=== PATIENT | male | born 1950 | race Caucasian/White ===

== ENCOUNTER 2016-02-25 06:59 | Inpatient (IN) ==
[2016-02-18 15:46] LABS: Appearance,Urine HAZY; Bilirubin,Urine NEG (NEG); Color,Urine YELLOW; Glucose,Urine (UA) NEGATIVE (NEG); Leukocyte Esterase,Urine NEG /uL (NEG); Nitrate,Urine NEG (NEG); Protein,Urine NEG (NEG); Specific Gravity,Urine 1.008 (1.000-1.035); Urine Blood NEG mg/dL (<0.03); Urobilinogen,Urine NEG (NEG)
[2016-02-18 17:34] LABS: Basophils # (Auto) 0 K/mcL (0.0-0.3); Basophils % (Auto) 0.5 % (0.0-2.0); Eosinophils # (Auto) 0.4 K/mcL (0.0-0.7); Eosinophils % (Auto) 5.9 % (0.0-7.0); Granulocytes % (Auto) 60.2 % (38.0-78.0); Lymphocytes # (Auto) 1.6 K/mcL (1.5-4.8); Lymphocytes % (Auto) 24.7 % (15.5-49.0); Mean Cell Volume 91.1 fL (80.0-100.0); Mean Corpuscular HGB Conc 32.3 g/dL (31.0-36.0); Mean Corpuscular Hemoglobin 29.4 pg (26.0-34.0); Monocytes # (Auto) 0.6 K/mcL (0.1-0.9); Monocytes % (Auto) 8.7 % (1.0-9.0); Platelet Count 256 K/mcL (140-440); RBC 5.38 M/mcL (4.50-5.90); Red Cell Distribution Width 14.1 % (11.5-14.5)
[2016-02-18 17:41] LABS: Blood Urea Nitrogen 13 mg/dl (8-23)
[~2016-02-25 06:59] MED LIST: CELECOXIB 200 MG CAPSULE PO SCH; PREGABALIN 150 MG CAPSULE PO SCH; ceFAZolin 1 GM VIAL IV SCH; oxyCODONE 10 MG TAB.ER.12H PO SCH
[2016-02-25] MEDS: ceFAZolin 1 GM VIAL ONE ×2 (09:32→10:36)
[2016-02-25] MEDS ORDERED: PHENYLEPHRINE 10 MG/ML VIAL IV ONE (09:40)
[2016-02-25] MEDS ORDERED: MIDAZOLAM 5 MG/5 ML VIAL IV ONE (09:40)
[2016-02-25] MEDS ORDERED: PROPOFOL 200 MG/20 ML VIAL IV ONE (09:40)
[2016-02-25] MEDS ORDERED: ONDANSETRON 4 MG/2 ML VIAL IV ONE (09:40)
[2016-02-25] MEDS ORDERED: TRANEXAMIC ACID 1,000 MG/10 ML VIAL IV ONE ×2 (09:40→11:10)
[2016-02-25] MEDS ORDERED: KETAMINE 100 MG/ML ML IV ONE (09:40)
[2016-02-25] MEDS ORDERED: FAMOTIDINE/PF 20 MG/2 ML VIAL IV ONE (09:40)
[2016-02-25] MEDS ORDERED: METOCLOPRAMIDE 10 MG/2 ML VIAL IV ONE (09:40)
[2016-02-25] MEDS ORDERED: GLYCOPYRROLATE 0.2 MG/ML VIAL IV ONE (09:40)
[2016-02-25] MEDS ORDERED: LIDOCAINE HCL/PF 100 MG/5 ML SYRINGE IV ONE (09:40)
[2016-02-25] MEDS ORDERED: GENTAMICIN SULFATE 800 MG/20 ML VIAL IR ONE (10:02)
[2016-02-25] MEDS ORDERED: BENZOCAINE/MENTHOL 1 LOZENGE PO PRN ×2 (10:40→11:10)
[2016-02-25] MEDS ORDERED: fentaNYL 100 MCG/2 ML VIAL IV PRN (10:40)
[2016-02-25] MEDS ORDERED: ePHEDrine 50 MG/ML AMPUL IV PRN (10:40)
[2016-02-25] MEDS ORDERED: METHOCARBAMOL 1,000 MG/10 ML VIAL IV PRN (10:40)
[2016-02-25] MEDS ORDERED: IPRATROPIUM/ALBUTEROL 3 ML AMPUL.NEB NEB PRN (10:40)
[2016-02-25] MEDS ORDERED: PROMETHAZINE 25 MG/ML VIAL IV PRN (10:40)
[2016-02-25] MEDS ORDERED: METOCLOPRAMIDE 10 MG/2 ML VIAL IV PRN (10:40)
[2016-02-25] MEDS ORDERED: MEPERIDINE 25 MG/ML SYRINGE IV PRN (10:40)
[2016-02-25] MEDS ORDERED: LACTATED RINGERS 1,000 ML IV SCH (10:45)
[2016-02-25] MEDS ORDERED: MAGNESIUM HYDROXIDE 30 ML ORAL.SUSP PO PRN (11:10)
[2016-02-25] MEDS ORDERED: BISACODYL 10 MG SUPP.RECT PR PRN (11:10)
[2016-02-25] MEDS ORDERED: FLEETS ADULT ENEMA PR PRN (11:10)
[2016-02-25] MEDS ORDERED: ONDANSETRON 4 MG/2 ML VIAL IV PRN (11:10)
[2016-02-25] MEDS ORDERED: PSYLLIUM HUSK 6 GM PACKET PO PRN (11:10)
[2016-02-25] MEDS ORDERED: POLYETHYLENE GLYCOL 3350 17 GM PACKET PO PRN (11:10)
--- NOTE | 2016-02-25 11:10 | Brief Operative Note ---
Date of procedure: 02/25/16 Pre-op diagnosis: left hip oa Post-op diagnosis: same Procedure: left total hip arthroplasty Grafts/Implants: Yes Anesthesia: spinal Complications: none Surgeon: Reyes Smith Special Ed Assistant: Rajat Lopez Estimated blood loss (cc): 100 Specimens Removed/Pathology: none sent Condition: stable Disposition: PACU
--- NOTE | 2016-02-25 11:58 | Operative Note ---
DATE OF OPERATION: 02/25/2016 PREOPERATIVE DIAGNOSIS: Degenerative joint disease, left hip. POSTOPERATIVE DIGNOSIS: Degenerative joint disease, left hip. PROCEDURE: Left total hip arthroplasty. SURGEON: Apolinar Smith M.D. EMERGENCY ROOM TECHNICIAN SURGEON: Rajat Lopez PA-C ANESTHESIA: Spinal with LMA assist. ESTIMATED BLOOD LOSS: 100 mL COMPLICATIONS: None noted. SPECIMENS REMOVED: None. DRAINS: None. IMPLANTS: Depuy [place] Gription acetabular shell 54 mm, Depuy [place] hole eliminator, Depuy [place] Altrex polyethylene acetabular liner lipped, 32 x 54, Depuy Articul/Kris femoral head 32 + 13, Depuy Tri-Lock BPS femoral stem with Gription size 6 standard. INDICATIONS: The patient has had a longstanding history of worsening pain in the hip that has failed conservative treatment. Radiographs have confirmed advanced degenerative joint disease. After a long discussion about treatment options, the patient elected to proceed with a hip arthroplasty. The risks and benefits were discussed with the patient in detail including, but not limited to, the risks of anesthesia, problems with the heart or lungs related to anesthesia, infection, compromise or injury to the nerves and blood vessels, deep venous thrombosis, pulmonary embolism, pneumonia, continued pain after surgery, worsening pain or symptoms after surgery, swelling, loss of motion, instability, leg length discrepancy, and need for repeat surgery. DESCRIPTION OF PROCEDURE: The patient was seen in pre-anesthesia waiting room where all questions were answered and the correct side and site were identified and marked. The patient was then brought to the operating room and administered the anesthetic and given pre-operative antibiotics. A time-out was then called. The patient was placed in the lateral decubitus position with all prominences well padded using the Fabiano frame and the extremity was prepped and draped in the usual sterile fashion. Anesthesia gave the patient 1 gm of tranexamic acid via an intravenous route. A standard posterior approach was made. We dissected through the skin and subcutaneous tissue to the deep fascia. The deep fascia was split in line with the incision and a Charnley retractor was placed. We exposed, tagged, and incised the short external rotators and piriformis tendon and retracted them posteriorly to help protect the sciatic nerve which was palpated throughout the case. We then performed a T-capsulotomy and tagged the capsule edges. Prior to dislocating the hip, we set a length and offset gauge from a Steinmann pin in the iliac wing to a jorge on the greater trochanter. The hip was then dislocated and a femoral neck osteotomy was performed to the pre-surgical templated level off the lesser trochanter. The head was removed and sized. We next turned our attention to the acetabulum. Retractors were placed for optimal visualization. A complete labral excision was performed. The capsule was preserved for later closure. We began reaming using anatomic landmarks with the DePuy [place] acetabular system. We medialized the cup and reamed up to provide good fill and coverage of the trial. When the trial was stable and appropriately positioned with approximately 20 degrees of anteversion and 45 degrees of abduction, we impacted the DePuy [place] cup and placed a cancellous screw in the posterior-superior quadrant. Osteophytes were removed from around the shell. We placed the trial liner and turned our attention to the femur. We placed retractors for visualization, internally rotated the femur, and established intramedullary access. We broached using the DePuy Tri-Lock stem to a stable platform medial, lateral, and rotationally with the appropriate version. We then performed a calcar reaming off the broach. Trials were then placed and optimized for leg length and stability. We used the leg length and offset guide to confirm our trials. Best stability, length, and offset characteristics were obtained with these sizes. We removed all trials and impacted the polyethylene acetabular liner in a standard fashion after a thorough irrigation. We then impacted the femoral stem to its broached location and placed the head. Final reduction was performed. Again, good stability, leg length, and offset characteristics were noted. We irrigated with three liters of antibiotic saline. We closed the capsule with #2 FiberWire. We placed a deep drain and closed the fascia with a combination of looped #0 Maxon and #0 Vicryl. We closed the subcutaneous tissue and skin in layers out to gina in the skin. A sterile pressure dressing and abduction wedge was applied. All needle and sponge counts were correct. The patient was transferred to the recovery room in stable condition. ALICIA:[email or web address] Job ID: [id number] Doc ID: [id number] Apolinar Smith MD
--- NOTE | 2016-02-25 12:37 | XRay Report ---
CLINICAL INFORMATION: Postop total hip prostheses COMPARISON: None. FINDINGS: Left total hip prostheses is anatomically aligned. Both SI and right hip are minimally degenerated. Soft tissue swelling seen over the surgical site as expected IMPRESSION: Negative Interpreted and Authenticated by: Reyes Serrato 02/25/16
[2016-02-25] MEDS: FERROUS SULFATE 325 MG TABLET PO SCH ×2 (13:33→18:12)
[2016-02-25] MEDS: LACTATED RINGERS 1,000 ML IV SCH ×2 (14:16→19:34)
[2016-02-25] MEDS: 0.9 % SODIUM CHLORIDE 10 ML SYRINGE IV SCH ×2 (14:17→23:07)
[2016-02-25] MEDS: HYDROcodone/APAP 10/325MG TABLET PO PRN ×2 (15:33→19:34)
[2016-02-25] MEDS: KETOROLAC 15 MG/ML VIAL IV PRN (15:33)
[2016-02-25] MEDS: ceFAZolin 1 GM VIAL IV SCH (18:12)
[2016-02-25] MEDS: SENNOSIDES 1 TABLET PO SCH (20:44)
[2016-02-25] MEDS: DOCUSATE SODIUM 100 MG CAPSULE PO SCH (20:45)
[2016-02-25] MEDS: ASPIRIN 325 MG ENTERIC COATED TABLET PO SCH (20:45)
[2016-02-25] MEDS: METHOCARBAMOL 750 MG TABLET PO PRN (20:51)
[2016-02-26] MEDS: HYDROmorphone 2 MG/ML SYRINGE IV PRN ×2 (00:22→02:15)
[2016-02-26] MEDS: HYDROcodone/APAP 10/325MG TABLET PO PRN ×6 (00:22→17:45)
[2016-02-26] MEDS: ceFAZolin 1 GM VIAL IV SCH (01:40)
[2016-02-26] MEDS: 0.9 % SODIUM CHLORIDE 10 ML SYRINGE IV SCH ×4 (04:41→21:08)
[2016-02-26] MEDS: LACTATED RINGERS 1,000 ML IV SCH ×3 (04:41→21:08)
[2016-02-26] MEDS: METHOCARBAMOL 750 MG TABLET PO PRN ×2 (04:59→11:38)
[2016-02-26] MEDS: KETOROLAC 15 MG/ML VIAL IV PRN ×3 (04:59→17:38)
[2016-02-26] MEDS ORDERED: PANTOPRAZOLE 40 MG TABLET PO SCH (07:30)
[2016-02-26] MEDS: FERROUS SULFATE 325 MG TABLET PO SCH ×4 (07:31→17:41)
--- NOTE | 2016-02-26 07:51 | Discharge Summary ---
Providers - Providers Patient information: Note initiated : 02/26/16 at 7:49 am Service Date, if different from initiated Date: [] Patient: Juan Jose Monique 65 y/o M admitted on 02/25/16 for Left Total Hip Arthroplasty *!section chief!*. Chief Complaint: [] Date of admission: 02/25/16 Discharge date: 02/26/16 Attending physician: Reyes Smith Hospitalization Hospital course: Patient underwent left total hip arthroplasty. Tolerated procedure well. Mild pain PO day 1 but was ambulating well and was ready to discharge home. Pain currently controlled. He is urinating. Denies calf pain, chest pain, SOB. Discharge diagnosis: left total hip arthroplasty Reason for admission: left degenerative joint disease Procedures: left total hip arthroplasty Exam - Exam Incision healing: Yes Incision draining: No Incision red: No Incision swollen: No Incision inflamed: No Clean and dry: Yes Weight bearing status: as tolerated Ortho Discharge - [facility] - Patient Instructions Diet: Regular Diet Activity: ambulate with assistive device, weight bearing as tolerated Total Hip Protocol: Follow activity instructions as provided by Physical Therapy. Dressing Care: May shower in 2 days Additional Dressing Instructions: Leave dermabond mesh intact! - Follow Up Plan Disposition: Home, Self-Care Prognosis: Good Rehab Potential: Good I certify that the patient requires SNF services: No Overall status at discharge: patient is progressing back to baseline - Orders For Discharge Prescriptions: Aspirin [Ecotrin] 325 mg PO BID #60 tab.ec Docusate Sodium [Colace] 100 mg PO BID #30 capsule HYDROcodone/APAP 10/325MG [[place] 10/325Mg] 1 - 2 tab PO Q4HP PRN #60 tablet PRN Reason: Pain Methocarbamol [Robaxin] 750 mg PO Q6HP PRN #30 tablet PRN Reason: Muscle Spasm Pending Studies Resuscitation Status Full Code Diet Regular Diet Start WedFeb 24 Dinner Diet Regular Diet Start WedFeb 25 Lunch Acetaminophen/Hydrocodone Bitart ([place] 10/325mg) 0 tab PO Q4HP PRN PRN Reason: Pain Last Admin: 02/26/16 06:01 Dose: 2 tab Admin: 02/26/16 02:14 Dose: 1 tab Admin: 02/26/16 00:22 Dose: 1 tab Admin: 02/25/16 19:34 Dose: 2 tab Admin: 02/25/16 15:33 Dose: 2 tab Aspirin (Ecotrin) 325 mg PO BID [facility] Last Admin: 02/25/16 20:45 Dose: 325 mg Docusate Sodium (Colace) 100 mg PO BID [facility] Last Admin: 02/25/16 20:45 Dose: 100 mg Ferrous Sulfate (Ferrous Sulfate) 325 mg PO TIDCC [facility] Last Admin: 02/26/16 07:31 Dose: 325 mg Admin: 02/25/16 18:12 Dose: 325 mg Admin: 02/25/16 13:33 Dose: 325 mg Hydromorphone HCl (Dilaudid) 0 mg IV Q2HP PRN PRN Reason: Pain Last Admin: 02/26/16 02:15 Dose: 1 mg Admin: 02/26/16 00:22 Dose: 0.5 mg Lactated Ringer's (Lactated Ringers) 1,000 mls @ 125 mls/hr IV .Q8H [facility] Last Infusion: 02/26/16 07:31 Dose: 0 mls/hr Admin: 02/26/16 04:41 Dose: Not Given Admin: 02/25/16 19:34 Dose: Not Given Admin: 02/25/16 14:16 Dose: 125 mls/hr Ketorolac Tromethamine (Toradol) 15 mg IV Q6HP PRN PRN Reason: Pain Stop: 02/27/16 11:12 Last Admin: 02/26/16 04:59 Dose: 15 mg Admin: 02/25/16 15:33 Dose: 15 mg Methocarbamol (Robaxin) 750 mg PO Q6HP PRN PRN Reason: Muscle Spasm Last Admin: 02/26/16 04:59 Dose: 750 mg Admin: 02/25/16 20:51 Dose: 750 mg Pantoprazole Sodium (Protonix) 40 mg PO Q48@0730 [facility] Last Admin: 02/26/16 07:29 Dose: 40 mg Senna (Senokot) 2 tab PO HS [facility] Last Admin: 02/25/16 20:44 Dose: 2 tab Sodium Chloride (Saline Flush) 10 ml IV Q8 [facility] Last Admin: 02/26/16 07:32 Dose: 10 ml Admin: 02/26/16 04:41 Dose: Not Given Admin: 02/25/16 23:07 Dose: Not Given Admin: 01/17/17 14:17 Dose: 10 ml Shift Summary 02/26/16 02:26 Shift Summary by Arpit Pérez Pt alert and oriented x4, VSS SaO2 >90% RA. Pt up SBA using FWW to bathroom. Makes needs known. Pain has been an issue tonight and has received [place] 2 tabs Q4 Robaxin x1 and 1.5mg Dilaudid. Pt unable to get much sleep. Dressing to left hip CDI. IV in left arm running MIV. No c/o N/V. Needs reminder on hip precautions. Urinating adequately. CMS intact. Will update further at bedside. Initialized on 02/26/16 02:26 - END OF NOTE
[2016-02-26] MEDS: ASPIRIN 325 MG ENTERIC COATED TABLET PO SCH ×2 (08:17→20:51)
[2016-02-26] MEDS: DOCUSATE SODIUM 100 MG CAPSULE PO SCH ×2 (08:17→20:52)
[2016-02-26] MEDS: SENNOSIDES 1 TABLET PO SCH (20:51)
[2016-02-27] MEDS: HYDROcodone/APAP 10/325MG TABLET PO PRN ×3 (02:13→10:32)
[2016-02-27] MEDS: LACTATED RINGERS 1,000 ML IV SCH (03:15)
[2016-02-27] MEDS: 0.9 % SODIUM CHLORIDE 10 ML SYRINGE IV SCH (05:43)
--- NOTE | 2016-02-27 06:21 | Orthopedic Progress Note ---
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 Chief Complaint: [] Interval history: doing well. pain under control Objective Vital signs: Vital Signs Temp Pulse Resp BP Pulse Ox 02/27/16 03:47 99.7 F H 87 12 115/71 94 02/26/16 23:30 99.5 F 79 12 103/67 95 02/26/16 20:00 97.9 F 88 12 102/65 92 02/26/16 16:00 99.5 F 87 18 113/73 93 02/26/16 12:00 98.6 F 80 16 122/59 95 02/26/16 07:53 95 02/26/16 07:38 98.8 F 86 16 136/70 93 Intake and Output 02/26/16 02/27/16 02/27/16 21:59 05:59 13:59 Intake Total 840 / 840 100 / 100 Balance 840 / 840 100 / 100 Intake: Oral 840 / 840 100 / 100 Other: Meal Dinner Percent of Meal Consumed 100% Feeding Ability Independent Weight 207 lb 8 oz Intake & Output: Intake & Output 02/26/16 02/27/16 02/27/16 21:59 05:59 13:59 Intake Total 840 / 840 100 / 100 Balance 840 / 840 100 / 100 Weight 207 lb 8 oz Intake: Oral 840 / 840 100 / 100 Other: Meal Dinner Percent of Meal Consumed 100% Feeding Ability Independent - Labs CBC & BMP: 02/27/16 04:25 02/18/16 14:35 Labs: Orthopedic Labs 02/18/16 14:35 PT 12.7 INR 0.9 02/27/16 02/26/16 02/18/16 04:25 05:00 14:35 Hgb 12.1 L 13.3 L 15.8 Hct 37.3 L 41.0 49.0 Assessment and Plan (1) Hip osteoarthritis assessment: pod 2 s/p justin plan: wbat pain control dvt prophylaxis d/c planning Status: Acute
[2016-02-27] MEDS ORDERED: traMADol 50 MG TABLET PO PRN (06:31)
[2016-02-27] MEDS: KETOROLAC 15 MG/ML VIAL IV PRN (06:44)
[2016-02-27] MEDS: ASPIRIN 325 MG ENTERIC COATED TABLET PO SCH (09:33)
[2016-02-27] MEDS: DOCUSATE SODIUM 100 MG CAPSULE PO SCH (09:33)
[2016-02-27] MEDS: FERROUS SULFATE 325 MG TABLET PO SCH (09:33)
== END 2016-02-27 11:35 | disposition home or self-care (01) | DRG 470 ==
LOC: MEDSUR 06:59
PROVIDERS: ADMIT Orthopaedic Surgery Sports Medicine; ATTEND Orthopaedic Surgery Sports Medicine